=== PATIENT | male | born 2000 | race Caucasian/White ===

== ENCOUNTER 2021-05-04 12:35 | Emergency (ER) | payer MEDICAID ==
[~2021-05-04] VITALS: Ht 162.6 cm; Wt 65.8 kg
[2021-05-04 12:35] VITALS: BP_SYST 130
[2021-05-04] MEDS ORDERED: PHEN-890 PO (13:32)
[2021-05-04 13:48] VITALS: BP_SYST 122
== END 2021-05-04 13:48 | disposition home or self-care (01) ==
LOC: SED 12:35
DX: S30.21XA Contusion of penis, initial encounter (principal); W18.39XA Other fall on same level, initial encounter; Y93.89 Activity, other specified; Y92.89 Other specified places as the place of occurrence of the external cause; Y99.8 Other external cause status
CPT/HCPCS: 81002; 99282

== ENCOUNTER 2021-08-23 12:04 | Emergency (ER) | payer MEDICAID ==
[~2021-08-23] VITALS: Ht 167.6 cm; Wt 68.0 kg
[~2021-08-23 12:04] MED LIST: PHEN-890 PO
[2021-08-23 12:05] VITALS: BP_SYST 122
--- NOTE | 2021-08-23 12:10 | NUR ---
Patient triaged and placed in waiting room. VSS and patient appears in no acute distress at this time. Accompanied by SELF, awaiting available bed, and MD notified of need for MSE.
--- NOTE | 2021-08-23 20:15 | NUR ---
ER in triage examining patient.
[2021-08-23] MEDS ORDERED: FLUC200T PO (20:24)
[2021-08-23] MEDS ORDERED: CLOT15CR5 TP (20:27)
[2021-08-23 21:03] VITALS: BP_SYST 121
--- NOTE | 2021-08-23 21:03 | NUR ---
Patient given written and verbal discharge instructions and verbalizes understanding. ER MD discussed with patient the care provided. Patient in stable condition. ID arm band removed. Rx of Diflucan and lotrisone cream sent to pharmacy of choice by ER MD. Patient educated on pain management and to follow up with PMD. Pain Scale 0/10. Opportunity for questions provided and answered.
[2021-08-23 21:28] LABS: BILIRUBIN,URINE NEGATIVE (NEGATIVE); BLOOD, URINE NEGATIVE (NEGATIVE); CLARITY/URINE CLEAR (CLEAR); COLOR,URINE YELLOW (YELLOW); GLUCOSE,URINE NEGATIVE (NEGATIVE); KETONES,URINE NEGATIVE (NEGATIVE); LEUKOCYTE ESTERASE ,URINE NEGATIVE (NEGATIVE); NITRITE, URINE NEGATIVE (NEGATIVE); PH,URINE 7.5 (5.0-8.0); PROTEIN URINE TRACE (NEGATIVE); UROBILINOGEN,URINE 0.2 (0.2-1.0)
[2021-08-26 00:07] LABS: CHLAMYDIA TRACHOMATIS NAA Negative (Negative); NEISSERIA GONORRHOEAE NAA Negative (Negative)
== END 2021-08-23 21:03 | disposition home or self-care (01) ==
LOC: SED 12:04
DX: B37.42 Candidal balanitis (principal); F12.90 Cannabis use, unspecified, uncomplicated; Z79.899 Other long term (current) drug therapy
CPT/HCPCS: 81003; 87491; 87591; 99283